=== PATIENT | female | born 1955 | race American Indian/Alaskan Native ===

== ENCOUNTER 2018-01-14 20:33 | Emergency (ER) | payer SELFPAY ==
[2018-01-14 22:12] VITALS: BP 173/99
== END 2018-01-14 23:05 | disposition left against medical advice (07) ==
LOC: ED 20:33
DX: R03.0 Elevated blood-pressure reading, without diagnosis of hypertension (principal); Z53.21 Procedure and treatment not carried out due to patient leaving prior to being seen by health care provider